=== PATIENT | female | born 1955 ===

== ENCOUNTER 2021-10-07 08:43 | Outpatient (CLI) | payer MEDICARE ==
[2021-10-07 15:00] LABS: MICROALBUM/CREATININE RATIO,UR 18.4 ug/mg (<30.0); MICROALBUMIN,URINE 2.8 mg/dL (0-300.0)
[2021-10-07 15:23] LABS: ALBUMIN 4.3 g/dL (3.2-5.5); ALBUMIN/GLOBULIN RATIO 1.4 (1.0-2.2); ALKALINE PHOSPHATASE 68 IU/L (42-121); ALT ALANINE AMINOTRANSFERASE 28 IU/L (10-60); AST ASPARTATE AMINOTRANSFERASE 46 IU/L (10-42); BILIRUBIN,TOTAL 0.7 mg/dL (0.2-1.0); BUN - BLOOD UREA NITROGEN 21 mg/dL (6-20); CALCIUM 9.8 mg/dL (8.5-10.3); CARBON DIOXIDE - CO2 26 mmol/L (21-32); CHLORIDE 99 mmol/L (101-111); CHOL/HDL RATIO 3.1 (<4.4); CHOLESTEROL 221 mg/dL; CREATININE 0.7 mg/dL (0.4-1.0); GFR - MDRD 84 (>89); GLUCOSE 217 mg/dL (70-100); HDL CHOLESTEROL 72 mg/dL; LDL CHOLESTEROL,CALCULATED 117 mg/dL; LDL/HDL RATIO 1.6 (<4.4); POTASSIUM 4.5 mmol/L (3.5-5.0); SODIUM 134 mmol/L (135-145); TOTAL PROTEIN 7.4 g/dL (6.7-8.2); TRIGLYCERIDES 160 mg/dL; VLDL CHOLESTEROL 32 mg/dL
== END 2021-10-07 08:44 | disposition home or self-care (01) ==
LOC: LAB.S 08:43
PROVIDERS: ATTEND Registered Nurse
DX: E11.9 Type 2 diabetes mellitus without complications (principal)
CPT/HCPCS: 36415; 80053; 80061; 82043; 82570; 83721

== ENCOUNTER 2023-06-14 08:38 | Emergency (ER) | payer MEDICARE ==
[2023-06-14 09:03] VITALS: O2SAT 100
[2023-06-14 09:29] LABS: BASOPHILS % (AUTO) 0.4 %; EOSINOPHILS # (AUTO) 0.1 10^3/uL (0.0-0.7); EOSINOPHILS % (AUTO) 0.6 %; HCT - HEMATOCRIT 37.5 % (37.0-47.0); HGB - HEMOGLOBIN 11.5 g/dL (12.0-16.0); LYMPHOCYTES # (AUTO) 1.7 10^3/uL (1.5-3.5); LYMPHOCYTES % (AUTO) 20.6 %; MEAN CORPUSCULAR HEMOGLOBIN 27.7 pg (27.0-31.0); MEAN CORPUSCULAR HGB CONC 30.7 g/dL (32.0-36.0); MEAN CORPUSCULAR VOLUME 90.4 fL (81.0-99.0); MEAN PLATELET VOLUME 9.1 fL (7.9-10.8); MONOCYTES # (AUTO) 0.8 10^3/uL (0.0-1.0); MONOCYTES % (AUTO) 9.2 %; NEUTROPHILS # (AUTO) 5.6 10^3/uL (1.5-6.6); NEUTROPHILS % (AUTO) 67.6 %; PLT - PLATELET COUNT 284 10^3/uL (130-450); RED BLOOD COUNT 4.15 10^6/uL (4.20-5.40); WHITE BLOOD COUNT 8.3 x10^3/uL (4.8-10.8)
--- NOTE | 2023-06-14 09:30 | ED Physician Documentation ---
History of Present Illness - Stated complaint Stated Complaint: SOA,LT SIDE PX - Chief complaint Chief Complaint: General - Additonal information Additional information: Is a 68-year-old female with a history of asthma presenting with cough wheezing and shortness of breath. She has been having symptoms over the past 7 days. Some low-grade fevers. Cough has been nonproductive and she has been quite wheezy. Tightness in her chest when she coughs and chest pain and back pain with coughing.No lower extremity swelling no recent car trips. No history of CAD Review of Systems Constitutional: reports: Fever Cardiac: reports: Chest pain / pressure Respiratory: reports: Dyspnea, Cough, Wheezing PD PAST MEDICAL HISTORY - Past Medical History Respiratory: Asthma - Present Medications Home Medications: Ambulatory Orders Medication Instructions Recorded Confirmed Albuterol Sulf [Ventolin Hfa 1 - 2 puffs INH Q4HR PRN #1 each 06/14/23 Inhaler] Budesonide/Formoterol Fumarate 2 inhaler IH BID #1 ea 06/14/23 [Breyna 160-4.5 Mcg Inhaler] predniSONE [Deltasone] 60 mg PO DAILY 5 Days #15 tablet 06/14/23 PD ED PE NORMAL - Vitals Vital signs reviewed: Yes - General General: Alert and oriented X 3 - HEENT HEENT: Atraumatic - Neck Neck: Supple, no meningeal sign - Cardiac Cardiac: RRR, No murmur - Respiratory Respiratory: Other (Diminished breath sounds and diffuse expiratory wheezing throughout.) - Abdomen Abdomen: Normal bowel sounds, Soft - Extremities Extremities: No deformity, No calf tenderness / cord - Neuro Neuro: Alert and oriented X 3 - Psych Psych: Normal mood Results - Vitals Vitals: Vital Signs - 24 hr 06/14/23 06/14/23 06/14/23 08:50 10:18 11:47 Temperature 98.7 C H Heart Rate 113 H 99 101 H Respiratory 22 20 14 Rate Blood Pressure 148/61 H O2 Saturation 100 Oxygen O2 Source Room air - EKG (time done) 0931 EKG releavant findings:: EKG personally interpreted by author of this note. Relevant findings are: Sinus rhythm rate 99, normal axis normal intervals. No ischemic changes noted. No prior EKGs available for comparison. - Labs Labs: Laboratory Tests 06/14/23 06/14/23 06/14/23 09:22 09:22 09:22 WBC 8.3 RBC 4.15 L Hgb 11.5 L Hct 37.5 MCV 90.4 MCH 27.7 MCHC 30.7 L RDW 15.0 Plt Count 284 MPV 9.1 Neut # (Auto) 5.6 Lymph # (Auto) 1.7 [place] # (Auto) 0.8 Eos # (Auto) 0.1 Baso # (Auto) 0.0 Absolute Nucleated RBC 0.00 Nucleated RBC % 0.0 D-Dimer < 200.0 L Sodium 136 Potassium 3.4 L Chloride 100 L Carbon Dioxide 26 Anion Gap 10.0 BUN 20 Creatinine 0.7 Estimated GFR (MDRD) 83 L Glucose 272 H Calcium 10.0 Total Bilirubin 0.6 AST 20 ALT 13 Alkaline Phosphatase 64 Troponin I High Sens 32.9 H* Total Protein 6.3 L Albumin 4.0 Globulin 2.3 Albumin/Globulin Ratio 1.7 Nasal Adenovirus (PCR) Nasal B. parapertussis DNA (PCR) Nasal Coronavir 229E PCR Nasal Coronavir HKU1 PCR Nasal Coronavir NL63 PCR Nasal Coronavir OC43 PCR Nasal Enterovir/Rhinovir PCR Nasal Influenza B PCR Nasal Influenza A PCR Nasal Parainfluen 1 PCR Nasal Parainfluen 2 PCR Nasal Parainfluen 3 PCR Nasal Parainfluen 4 PCR Nasal RSV (PCR) Nasal B.pertussis DNA PCR Nasal C.pneumoniae (PCR) Raffaele Human Metapneumo PCR Nasal M.pneumoniae (PCR) Nasal SARS-CoV-2 (PCR) 06/14/23 06/14/23 10:49 11:48 WBC RBC Hgb Hct MCV MCH MCHC RDW Plt Count MPV Neut # (Auto) Lymph # (Auto) App[place] # (Auto) Eos # (Auto) Baso # (Auto) Absolute Nucleated RBC Nucleated RBC % D-Dimer Sodium Potassium Chloride Carbon Dioxide Anion Gap BUN Creatinine Estimated GFR (MDRD) Glucose Calcium Total Bilirubin AST ALT Alkaline Phosphatase Troponin I High Sens 29.5 H* Total Protein Albumin Globulin Albumin/Globulin Ratio Nasal Adenovirus (PCR) NOT DETECTED Nasal B. parapertussis DNA (PCR) NOT DETECTED Nasal Coronavir 229E PCR NOT DETECTED Nasal Coronavir HKU1 PCR NOT DETECTED Nasal Coronavir NL63 PCR NOT DETECTED Nasal Coronavir OC43 PCR NOT DETECTED Nasal Enterovir/Rhinovir PCR NOT DETECTED Nasal Influenza B PCR NOT DETECTED Nasal Influenza A PCR NOT DETECTED Nasal Parainfluen 1 PCR NOT DETECTED Nasal Parainfluen 2 PCR NOT DETECTED Nasal Parainfluen 3 PCR NOT DETECTED Nasal Parainfluen 4 PCR NOT DETECTED Nasal RSV (PCR) NOT DETECTED Nasal B.pertussis DNA PCR NOT DETECTED Nasal C.pneumoniae (PCR) NOT DETECTED Raffaele Human Metapneumo PCR NOT DETECTED Nasal M.pneumoniae (PCR) NOT DETECTED Nasal SARS-CoV-2 (PCR) NOT DETECTED - Rads (name of study) cxr Relevant Findings:: Final report received (No acute cardiopulmonary process) PD Medical Decision Making - ED course Complexity details: reviewed old records, reviewed results, re-evaluated patient ED course: Patient was given nebulizers with improvement. Her cough and wheezing recurred. She is given IV Solu-Medrol. Her EKG is unremarkable however her high sensitive troponin comes back mildly elevated at 32. I gave her an aspirin and will check a repeat EKG and troponin. Overall the picture is very respiratory and not cardiac. She has diffuse wheezing and coughing. It certainly possible that she had some demand ischemia with her respiratory issues that she has been having.Chest x-ray is clear, would not give antibiotics. Viral panel is negative I repeated a second EKG and this shows sinus tachycardia rate 108 low voltage but no ischemia again. Repeat troponin is trending down at 29. Do not think this represents acute coronary event this is clearly an asthma flare. Will dose her with prednisone for home and refill her home inhalers. These will be sent to [facility] in [place] per her request. Departure - Departure Disposition: Home, Self Care Clinical Impression: Asthma exacerbation Qualifiers: Asthma severity: moderate Asthma persistence: unspecified Qualified Code(s): J45.901 - Unspecified asthma with (acute) exacerbation Instructions: Asthma Dc Follow-Up: Kierra Victor [employer] [Primary Care Provider] - Prescriptions: Albuterol Sulf [Ventolin Hfa Inhaler] 1 - 2 puffs INH Q4HR PRN #1 each PRN Reason: Shortness Of Air/Wheezing Budesonide/Formoterol Fumarate [Breyna 160-4.5 Mcg Inhaler] 2 inhaler IH BID #1 ea predniSONE [Deltasone] 60 mg PO DAILY 5 Days #15 tablet Forms: PCP List
--- NOTE | 2023-06-14 09:45 | XRAY Report ---
PROCEDURE: Chest 1V INDICATIONS: sob TECHNIQUE: One view of the chest was acquired. COMPARISON: 07/17/2006. FINDINGS: Surgical changes and devices: None. Lungs and pleura: No pleural effusions or pneumothorax. Lungs are clear. Mediastinum: Mediastinal contours appear normal. Heart size is normal. Bones and chest wall: No suspicious bony lesions. Overlying soft tissues appear unremarkable. IMPRESSION: No acute cardiopulmonary process. Reviewed by: Humberto Toledo MD on 06/14/2023 9:44 AM PDT Approved by: Humberto Tloedo MD on 06/14/2023 9:44 AM PDT Station ID: [id number]
[2023-06-14 09:53] LABS: TROPONIN I HIGH SENSITIVITY 32.9 ng/L (2.3-14.8)
[2023-06-14 09:55] LABS: ALBUMIN/GLOBULIN RATIO 1.7 (1.0-2.2); BILIRUBIN,TOTAL 0.6 mg/dL (0.2-1.0); CREATININE 0.7 mg/dL (0.6-1.3); POTASSIUM 3.4 mmol/L (3.5-4.5); TOTAL PROTEIN 6.3 g/dL (6.4-8.9)
[2023-06-14] MEDS: IPRATROPIUM/ALBUTEROL 3 ML NEB INH PRN ×2 (10:17→11:47)
[2023-06-14] MEDS: ASPIRIN 325 MG TABLET PO STA (10:17)
[2023-06-14] MEDS: methylPREDNISolone SUCCINATE 125 MG/2 ML VIAL IVP STA (10:18)
[2023-06-14 11:41] LABS: B. PARAPERTUSSIS- RESP PCR PAN NOT DETECTED; B. PERTUSSIS- RESP PCR PANEL NOT DETECTED; C. PNEUMONIAE- RESP PCR PANEL NOT DETECTED; CORONAVIRUS 229E-RESP PCR NOT DETECTED; CORONAVIRUS HKU1-RESP PCR NOT DETECTED; CORONAVIRUS NL63-RESP PCR NOT DETECTED; CORONAVIRUS OC43-RESP PCR NOT DETECTED; HUMAN METAPNEUMOVIRUS NOT DETECTED; INFLUENZA A- RESP PCR PANEL NOT DETECTED; INFLUENZA B - RESP PCR PANEL NOT DETECTED; M. PNEUMONIAE- RESP PCR PANEL NOT DETECTED; PARAINFLUENZA VIRUS 1 NOT DETECTED; PARAINFLUENZA VIRUS 2 NOT DETECTED; PARAINFLUENZA VIRUS 3 NOT DETECTED; PARAINFLUENZA VIRUS 4 NOT DETECTED; RHINOVIRUS/ENTEROVIRUS NOT DETECTED; RSV- RESP PCR PANEL NOT DETECTED; SARS-CoV-2 -RESP PCR PANEL NOT DETECTED
[2023-06-14] MEDS ORDERED: IPRATROPIUM/ALBUTEROL 3 ML NEB INH PRN (12:59)
[2023-06-14 14:14] VITALS: BP 130/60
== END 2023-06-14 14:08 | disposition home or self-care (01) ==
LOC: ED 08:38
DX: J45.901 Unspecified asthma with (acute) exacerbation (principal)
CPT/HCPCS: 36415; 71045; 80053; 84484; 85025; 85379; 87633; 93005; 94640; 96374; 99284; A9270

== ENCOUNTER 2023-08-28 19:34 | Emergency (ER) | payer MEDICARE ==
[2023-08-28 20:12] LABS: BASOPHILS # (AUTO) 0.1 10^3/uL (0.0-0.1); BASOPHILS % (AUTO) 0.8 %; EOSINOPHILS # (AUTO) 0.2 10^3/uL (0.0-0.7); EOSINOPHILS % (AUTO) 2.7 %; HCT - HEMATOCRIT 35.7 % (37.0-47.0); HGB - HEMOGLOBIN 10.8 g/dL (12.0-16.0); LYMPHOCYTES # (AUTO) 1.5 10^3/uL (1.5-3.5); LYMPHOCYTES % (AUTO) 24.2 %; MEAN CORPUSCULAR HEMOGLOBIN 27.4 pg (27.0-31.0); MEAN CORPUSCULAR HGB CONC 30.3 g/dL (32.0-36.0); MEAN CORPUSCULAR VOLUME 90.6 fL (81.0-99.0); MEAN PLATELET VOLUME 9.3 fL (7.9-10.8); MONOCYTES # (AUTO) 0.5 10^3/uL (0.0-1.0); MONOCYTES % (AUTO) 8.4 %; NEUTROPHILS % (AUTO) 63.7 %; PLT - PLATELET COUNT 220 10^3/uL (130-450); RED BLOOD COUNT 3.94 10^6/uL (4.20-5.40); RED CELL DISTRIBUTION WIDTH 14.3 % (12.0-15.0); WHITE BLOOD COUNT 6.2 x10^3/uL (4.8-10.8)
[2023-08-28 20:28] LABS: ALBUMIN 4.2 g/dL (3.2-5.5); ALBUMIN/GLOBULIN RATIO 1.6 (1.0-2.2); BILIRUBIN,TOTAL 0.7 mg/dL (0.2-1.0); CALCIUM 9.6 mg/dL (8.5-10.3); CREATININE 0.7 mg/dL (0.6-1.3); POTASSIUM 3.7 mmol/L (3.5-4.5); TOTAL PROTEIN 6.9 g/dL (6.4-8.9)
[2023-08-28 22:31] LABS: BILIRUBIN,URINE NEGATIVE (NEGATIVE); GLUCOSE, URINE (UA) NEGATIVE (NEGATIVE); KETONES,URINE (UA) TRACE mg/dL (NEGATIVE); LEUKOCYTE ESTERASE, URINE MODERATE (NEGATIVE); NITRITE,URINE NEGATIVE (NEGATIVE); OCCULT BLOOD,URINE SMALL (NEGATIVE); PROTEIN,URINE 100 mg/dL (NEGATIVE); UROBILINOGEN,URINE 0.2 (NORMAL) E.U./dL (NORMAL)
[2023-08-28 22:34] LABS: CLARITY,URINE CLOUDY (CLEAR)
[2023-08-28 22:41] LABS: BACTERIA,URINE Many /HPF (None Seen); RBC,URINE 0-5 /HPF (0-5); SQUAMOUS EPITHELIAL CELL,UR RARE Squamous (<= Few); WBC,URINE >25 /HPF (0-5)
[2023-08-29] MEDS: ONDANSETRON 4 MG/2 ML VIAL IVP STA (02:06)
[2023-08-29] MEDS: HYDROmorphone 1 MG/ML CARPUJECT IVP STA (02:07)
[2023-08-29] MEDS: SODIUM CHLORIDE 0.9% 1,000 ML IV STA (02:12)
[2023-08-29] MEDS ORDERED: iohexoL-300 100 ML VIAL ONE (02:36)
[2023-08-29] MEDS: iohexoL-300 100 ML VIAL IVP ONE (03:15)
[2023-08-29] MEDS: KETOROLAC 30 MG/ML VIAL IVP STA (03:39)
[2023-08-29] MEDS: cefTRIAXone 1 GM VIAL IVP STA (05:25)
[2023-08-29] MEDS: ONDANSETRON ODT 4 MG Prepack 2 TL PRN (05:26)
[2023-08-29] MEDS: oxyCODONE/ACET 5/325 Prepack 4 PO STA (05:26)
--- NOTE | 2023-08-29 05:34 | ED Physician Documentation ---
History of Present Illness - Stated complaint Stated Complaint: L SIDE PX - Chief complaint Chief Complaint: Abd Pain - Additonal information Additional information: 68-year-old female presents with flank pain x 3 days. Associated with nausea vomiting. Denies fever, chills, Chest pain, shortness of breath, recent travel,. Endorses for surgical history including cholecystectomy, appendectomy, hysterectomy, multiple sections. Review of Systems Constitutional: denies: Fever Eyes: denies: Loss of vision Ears: denies: Loss of hearing Nose: denies: Rhinorrhea / runny nose Throat: denies: Dental pain / toothache Cardiac: denies: Chest pain / pressure Respiratory: denies: Dyspnea GI: denies: Abdominal Pain : denies: Dysuria Skin: denies: Rash Musculoskeletal: denies: Neck pain Neurologic: denies: Generalized weakness PD PAST MEDICAL HISTORY - Past Medical History Past Medical History: Yes Cardiovascular: None Respiratory: Asthma Neuro: None Endocrine/Autoimmune: Type 2 diabetes GI: None HUNTER GUIDE: None : None HEENT: None Musculoskeletal: None - Past Surgical History General: Cholecystectomy, Appendectomy /HUNTER GUIDE: section, Hysterectomy - Present Medications Home Medications: Ambulatory Orders Medication Instructions Recorded Confirmed Albuterol Sulf [Ventolin Hfa 1 - 2 puffs INH Q4HR PRN #1 each 06/14/23 Inhaler] Budesonide/Formoterol Fumarate 2 inhaler IH BID #1 ea 06/14/23 [Breyna 160-4.5 Mcg Inhaler] predniSONE [Deltasone] 60 mg PO DAILY 5 Days #15 tablet 06/14/23 Cefdinir 300 mg PO BID #20 cap 08/29/23 HYDROcod/ACETAM 5/325 [[place] 5/325] 1 tab PO Q6HR #15 tab 08/29/23 - Allergies Allergies/Adverse Reactions: Allergies Allergy/AdvReac Type Severity Reaction Status Date / Time No Known Drug Allergies Allergy Verified 08/28/23 19:47 - Social History Does the pt smoke?: No Smoking Status: Never smoker - Immunizations Immunizations are current?: Yes PD ED PE NORMAL - General General: Alert and oriented X 3, No acute distress, Well developed/nourished - HEENT HEENT: Atraumatic, PERRL, EOMI, Ears normal, Moist mucous membranes, Pharynx benign, Dentition benign - Neck Neck: Supple, no meningeal sign, No bony TTP, No adenopathy, Thyroid normal, No JVD, No bruit, C-Spine cleared by NEXUS criteria, Other - Cardiac Cardiac: RRR, No murmur, No gallop, Strong equal pulses - Respiratory Respiratory: No respiratory distress, Clear bilaterally - Abdomen Abdomen: Normal bowel sounds, Non tender, No organomegaly - Female Female : Deferred - Rectal Rectal: Deferred - Back Back: No CVA TTP - Derm Derm: Normal color - Extremities Extremities: No deformity - Neuro Neuro: Alert and oriented X 3, 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, No motor deficit, No sensory deficit, Normal speech Results - Vitals Vitals: Vital Signs - 24 hr 08/28/23 08/28/23 08/29/23 19:41 22:04 01:08 Temperature 36.1 C L 36.8 C Heart Rate 94 87 90 Respiratory 22 24 20 Rate Blood Pressure 200/74 H 166/112 H 209/120 H O2 Saturation 100 100 100 08/29/23 08/29/23 02:13 04:00 Temperature Heart Rate 94 92 Respiratory 20 16 Rate Blood Pressure 216/100 H 190/91 H O2 Saturation 99 97 Oxygen O2 Source Room air - Labs Labs: Laboratory Tests 08/28/23 08/28/23 08/28/23 20:07 20:07 22:15 WBC 6.2 RBC 3.94 L Hgb 10.8 L Hct 35.7 L MCV 90.6 MCH 27.4 MCHC 30.3 L RDW 14.3 Plt Count 220 MPV 9.3 Neut # (Auto) 4.0 Lymph # (Auto) 1.5 Levy # (Auto) 0.5 Eos # (Auto) 0.2 Baso # (Auto) 0.1 Absolute Nucleated RBC 0.00 Nucleated RBC % 0.0 Sodium 139 Potassium 3.7 Chloride 104 Carbon Dioxide 26 Anion Gap 9.0 BUN 15 Creatinine 0.7 Estimated GFR (MDRD) 83 L Glucose 180 H Calcium 9.6 Total Bilirubin 0.7 AST 16 ALT 10 Alkaline Phosphatase 68 Total Protein 6.9 Albumin 4.2 Globulin 2.7 Albumin/Globulin Ratio 1.6 Lipase 45 Urine Color YELLOW Urine Clarity CLOUDY Urine pH 6.0 Ur Specific Sterling 1.020 Urine Protein 100 H Urine Glucose (UA) NEGATIVE Urine Ketones TRACE Urine Occult Blood SMALL H Urine Nitrite NEGATIVE Urine Bilirubin NEGATIVE Urine Urobilinogen 0.2 (NORMAL) Ur Leukocyte Esterase MODERATE H Urine RBC 0-5 Urine WBC >25 H Ur Squamous Epith Cells RARE Squamous Urine Bacteria Many H Ur Microscopic Review INDICATED Urine Culture Comments INDICATED PD Medical Decision Making - ED course Complexity details: reviewed results, re-evaluated patient, considered differential, d/w patient ED course: 68-year-old female presents with left-sided flank pain. Afebrile, hemodynami shay stable. Initial differential diagnosis included but not limited to nephrolithiasis, pyelonephritis, diverticulitis. Patient arrives mildly hypertensive. IV access established. Given medication for pain control, IV hydration. Labs demonstrated chronic low-level anemia with hemoglobin 10.8 onWhich does not represent a significant change changed from the most previous 11.5.Comprehensive metabolic panel shows normal renal function, hepatic function without significant or severe electrolyte abnormality. There is nothing in patient's presentation to suggest cardiac etiology for her sympt oms. Similarly her presentation it would be extremely atypical for acute ovarian pathology. CT of the abdomen pelvis does not show nephrolithiasis or hydronephrosis. There is some mucosal thickening of the urinary bladder consistent with acute cystitis. Her urine analysis does show indications of infection. She is given dose Rocephin here in the emergency department and discharged on course of Omnicef. Additional incidental findings include hepatomegaly and some scattered colonic diverticula without diverticulitis but no other acute dangerous or surgical emergency found. No indication sepsis or severe infection. Patient was provided with medication for pain control in addition to the above-mentioned antibiotics. She was encouraged to follow-up with primary care both for evaluation of resolution of her infection as well as for repeat monitoring of her blood pressure which was moderately elevated here in the emergency department. Otherwise clear return precautions given prior to discharge. Departure - Departure Disposition: Home, Self Care Clinical Impression: Flank pain UTI (urinary tract infection) Qualifiers: Urinary tract infection type: acute cystitis Hematuria presence: without hematuria Qualified Code(s): N30.00 - Acute cystitis without hematuria Prescriptions: HYDROcod/ACETAM 5/325 [[place] 5/325] 1 tab PO Q6HR #15 tab Cefdinir 300 mg PO BID #20 cap Comments: Thank you for allowing us to care for you today [facility]. Today in the emergency department you are found to have a urinary tract infection. I written some medication for pain control as well as a course of oral antibiotics. Your urine will be sent for culture and further testing. If there is concern for antibiotic resistance we will contact you directly in the next few days. In the meantime please increase your intake and fiber for foods and natural probiotics while on antibiotics. Please reach out directly to your primary care doctor concerning your ER visit. If it anytime you develop any new or worsening symptoms please not hesitate to return. Forms: PCP List
[2023-08-29 05:37] VITALS: BP 186/95; O2SAT 94
--- NOTE | 2023-08-29 08:23 | CT Report ---
PROCEDURE: Abdomen/Pelvis W INDICATIONS: left sided abd pain CONTRAST: 100 ML OMNI 300 TECHNIQUE: After the administration of intravenous contrast, a CT scan of the abdomen and pelvis was performed. Images were recorded and evaluated at appropriate window settings. Reformats: coronal and sagittal. F or radiation dose reduction, the following was used: automated exposure control, adjustment of mA and /or kV according to patient size. COMPARISON: None. FINDINGS: Image quality: Diagnostic. Lower chest: Bibasilar dependent atelectasis is seen. Liver: No solid mass. There is hepatomegaly. Gallbladder: The gallbladder is surgically absent Biliary tree: No intrahepatic or extrahepatic dilation, accounting for age. Spleen: No splenomegaly. Pancreas: No pancreatic ductal dilation. Adrenals: No adrenal nodule. Kidneys and ureters: No hydronephrosis. Simple appearing multiple left renal cysts are seen measures up to 3.6 x 3.8 cm in size in midpole left kidney. No renal cystic lesion which requires follow up. N o solid mass. Nonspecific bilateral perinephric fat stranding is seen. Stomach, bowel and peritoneum: No gastric or small bowel dilation. No abnormal wall thickening. No pa thologic free fluid. Sigmoid diverticulosis without CT evidence of acute diverticulitis. No gross won e air. Appendix is surgically absent. Lymph nodes: No central or retroperitoneal adenopathy. Vessels: No infrarenal aortic aneurysm. Patent portal vein. PELVIS Reproductive organs: There is prior hysterectomy. Bladder: Suggestion of mild bladder wall thickening. No calcified bladder stone or discrete bladder w all mass. Pelvic lymph nodes: No pelvic adenopathy by size criteria. Bones: No aggressive osseous abnormality. Other: No significant ventral or inguinal hernia. IMPRESSION: 1. No bowel obstruction or abnormal bowel wall thickening. Sigmoid diverticulosis without CT evidence of acute diverticulitis. No abscess collection. No free fluid of free air. 2. Nonspecific mild bilateral perinephric fat stranding and mild urinary bladder wall thickening conc erning for low-grade cystitis and pyelonephritis suggest urological correlation. No obstructing renal stones or hydronephrosis. Likely simple appearing cysts in left kidney as above. 3. Hepatomegaly, no discrete hepatic lesion. 4. Prior cholecystectomy and hysterectomy. Findings are concordant with preliminary interpretation provided by [facility]. Reviewed by: Moise De La Vega MD on 08/29/2023 8:22 AM PDT Approved by: Moise De La Vega MD on 08/29/2023 8:22 AM PDT Station ID: [id number]
--- NOTE | 2023-08-29 12:45 | ED Physician Documentation ---
ED Addendum - Addendum Addendum: 08/29/23 12:44 Prescriptions were not sent electronically to [facility] in [place] by the prior physician, therefore the prescriptions were re-ordered and sent.
== END 2023-08-29 05:39 | disposition home or self-care (01) ==
LOC: ED 19:34
DX: N30.00 Acute cystitis without hematuria (principal); R10.9 Unspecified abdominal pain; R16.0 Hepatomegaly, not elsewhere classified; K57.30 Diverticulosis of large intestine without perforation or abscess without bleeding; E11.9 Type 2 diabetes mellitus without complications; Z79.51 Long term (current) use of inhaled steroids; Z79.899 Other long term (current) drug therapy
CPT/HCPCS: 36415; 74177; 80053; 81001; 83690; 85025; 87086; 96361; 96374; 96375; 99284; 99285; A9270; J1170; Q9967; 81003; 87181